=== PATIENT | female | born 1945 | race Caucasian/White ===

== ENCOUNTER → 2017-01-13 16:05 | Outpatient (CLI) | payer MEDICARE, BC | END | disposition home or self-care (01) | LOC: D.CT 16:05 | DX: R10.31 Right lower quadrant pain (principal) ==

== ENCOUNTER → 2018-01-20 15:41 | Outpatient (CLI) | payer MEDICARE, BC | END | disposition home or self-care (01) | LOC: D.CT 01-12 16:30 | DX: R10.31 Right lower quadrant pain (principal) ==

== ENCOUNTER 2018-04-12 08:30 | Outpatient (CLI) | payer MEDICARE, BC ==
[~2018-04-12] VITALS: Ht 165.1 cm; Wt 63.6 kg
[2018-04-12 16:11] LABS: BASOPHILS 0.4 % (0-2); EOSINOPHILS 4.7 % (0-7); HEMATOCRIT 28.5 % (36.0-48.0); HEMOGLOBIN 8.7 g/dL (12-16); IMMATURE GRANULOCYTES 0.2 % (0-5); LYMPHOCYTES 45.7 % (15-50); MCH 22.4 pg (26.0-34.0); MCHC 30.5 g/dL (31.0-37.0); MCV 73.5 fL (80.0-100.0); MEAN PLATELET VOLUME 10.7 fL (7.4-10.4); PLATELET COUNT 255 10x3/uL (130-400); RBC 3.88 10x6/uL (4.00-5.40); RDW 21.1 % (11.5-14.5); WBC 4.7 10x3/uL (4.8-10.8)
[2018-04-12 16:16] VITALS: BP 138/72; Ht 165.1 cm; Wt 63.6 kg
== END 2018-04-12 15:53 | disposition home or self-care (01) ==
LOC: D.LAB 08:30 → D.OPS 08:30 → D.LAB 08:45 → D.OPS 09:00
PROVIDERS: Family Medicine
DX: D64.9 Anemia, unspecified (principal); Z01.812 Encounter for preprocedural laboratory examination